=== PATIENT | male | born 1940 | race Two or more races ===

== ENCOUNTER 2020-05-25 21:42 | Inpatient (IN) | payer MEDICARE, BC ==
[~2020-05-25] VITALS: Ht 180.3 cm; Wt 92.3 kg
[2020-05-25 23:33] LABS: Basophils # (auto) 0 10 ^3/uL (0-0.2); Eosinophils # (auto) 0 10 ^3/uL (0-0.8); Hemoglobin 12.1 g/dL (13.5-17.5); Lymphocytes # (auto) 1.2 10 ^3/uL (0.4-5.4); Neutrophils # (auto) 8.1 10 ^3/uL (1.6-8.6); White Blood Cell 10.4 10^3/uL (4.4-10.8)
[2020-05-25 23:36] LABS: Basophils % (auto) 0.1 % (0.0-2.0); Eosinophils % (auto) 0.1 % (0.0-7.0); Hematocrit 35.2 % (41.0-53.0); Lymphocytes % (auto) 11.5 % (10.0-50.0); Mean Corpuscular Hemoglobin 36.9 pg (28.0-32.0); Mean Corpuscular Hgb Conc. 34.3 g/dL (32.0-36.0); Mean Corpuscular Volume 107.6 fL (80.0-100.0); Neutrophils % (auto) 78.3 % (37.0-80.0); Platelet Count (auto) 341 10^3/uL (140-450); Red Blood Cells 3.27 10^6/uL (4.5-5.90); Red Cell Distribution Width 16.2 % (11.8-14.3)
[2020-05-25 23:54] LABS: INR 0.97 (0.9-1.15); Partial Thromboplastin Time 29.3 sec (23.0-31.2)
[2020-05-25 23:59] LABS: Calcium 8.7 mg/dL (8.5-10.1); Potassium 4.7 mmol/L (3.5-5.1)
[2020-05-26 00:02] LABS: Lactic Acid w/Reflex 2.3 mmol/L (0.4-2.0)
[2020-05-26 00:06] LABS: BUN/Creatinine Ratio 12.4; Bilirubin, Total 0.3 mg/dL (0.2-1.0); Total Protein 7.4 g/dL (6.4-8.2)
[2020-05-26 03:50] LABS: Urine Bacteria FEW /hpf (None Seen); Urine Blood 3+ /uL (Negative); Urine Hyaline Cast FEW /lpf (0 - 2); Urine Specific Gravity 1.016 (1.001-1.035); Urine WBC 1 /hpf (0 - 3)
[2020-05-26 04:05] LABS: Alcohol, Urine < 3.0 mg/dL (0-10); Amphetamine Screen, Urine NEGATIVE (NEGATIVE); Barbiturate Scree,Urine NEGATIVE (NEGATIVE); Benzodiazephine Screen, Urine NEGATIVE (NEGATIVE); Cannabinoid Screen, Urine NEGATIVE (NEGATIVE); Cocaine Screen, Urine NEGATIVE (NEGATIVE); Opiate Scree,Urine NEGATIVE (NEGATIVE); Phencyclidine Screen, Urine NEGATIVE (NEGATIVE)
[2020-05-26] MEDS ORDERED: ONDANSETRON HCL 4 MG/2 ML VIAL IV PRN ×2 (04:30→07:15)
[2020-05-26] MEDS ORDERED: ACETAMINOPHEN 325 MG TAB PO PRN (07:15)
[2020-05-26] MEDS ORDERED: NITROGLYCERIN 0.4 MG SL TAB SL PRN (07:15)
[2020-05-26] MEDS ORDERED: SODIUM CHLORIDE 0.9% 1,000 ML IV SCH (07:15)
[2020-05-26] MEDS ORDERED: MORPHINE SULF INJ 2 MG/ML SYRINGE 1ML IV PRN (07:15)
[2020-05-26] MEDS ORDERED: DOCUSATE SOD 100 MG CAP PO PRN (07:15)
[2020-05-26] MEDS: FOLIC ACID 1 MG TAB PO SCH (07:32)
[2020-05-26] MEDS: FAMOTIDINE 20 MG TAB PO SCH (07:33)
[2020-05-26] MEDS: HEPARIN SODIUM (PORCINE) 5000 UNITS/ML 1ML VIAL SC SCH ×2 (07:33→22:18)
[2020-05-26] MEDS: ZINC SULFATE 220mg CAP or TAB PO SCH (07:33)
[2020-05-26] MEDS: MULTIPLE VITAMIN TAB PO SCH (07:33)
[2020-05-26] MEDS: THIAMINE HCL 100 MG TAB PO SCH (07:33)
[2020-05-26] MEDS: HYDROcodone-ACET 5/325MG TAB PO PRN ×2 (08:21→22:17)
[2020-05-26 09:07] LABS: Basophils # (auto) 0 10 ^3/uL (0-0.2); Eosinophils # (auto) 0 10 ^3/uL (0-0.8); Eosinophils % (auto) 0.1 % (0.0-7.0); Hemoglobin 12.4 g/dL (13.5-17.5); Lymphocytes # (auto) 1.8 10 ^3/uL (0.4-5.4); Mean Corpuscular Hemoglobin 35.9 pg (28.0-32.0); Mean Corpuscular Volume 107.1 fL (80.0-100.0); Monocytes # (auto) 0.8 10 ^3/uL (0-1.3); Red Cell Distribution Width 16.2 % (11.8-14.3); White Blood Cell 9.1 10^3/uL (4.4-10.8)
[2020-05-26 09:10] LABS: Basophils % (auto) 0.3 % (0.0-2.0); Hematocrit 36.8 % (41.0-53.0); Lymphocytes % (auto) 20.1 % (10.0-50.0); Mean Corpuscular Hgb Conc. 33.6 g/dL (32.0-36.0); Monocytes % (auto) 9.1 % (0.0-12.0); Neutrophils # (auto) 6.4 10 ^3/uL (1.6-8.6); Neutrophils % (auto) 70.4 % (37.0-80.0); Platelet Count (auto) 312 10^3/uL (140-450); Red Blood Cells 3.44 10^6/uL (4.5-5.90)
[2020-05-26 09:43] LABS: Albumin 2.8 g/dL (3.4-5.0); Calcium 8.5 mg/dL (8.5-10.1); Potassium 4.2 mmol/L (3.5-5.1)
[2020-05-26 09:47] LABS: BUN/Creatinine Ratio 14.6; Bilirubin, Total 0.5 mg/dL (0.2-1.0); Total Protein 7.3 g/dL (6.4-8.2)
[2020-05-26] MEDS ORDERED: ESCI10TA PO (10:32)
[2020-05-26] MEDS ORDERED: SILO8CAP13 PO (10:32)
[2020-05-26] MEDS ORDERED: FOLI1TAB6 PO (10:32)
[2020-05-26] MEDS: CIPROFLOXACIN 0.3%OPTH(EYE) SOL 5ML EACHEYE SCH ×2 (17:56→22:17)
[2020-05-26 18:00] VITALS: BP 137/69
[2020-05-26] MEDS ORDERED: POLY33504 PO (18:22)
[2020-05-27] VITALS: BP 137/63
[2020-05-27] MEDS ORDERED: TEMAZEPAM 15 MG CAP PO ONE (00:30)
[2020-05-27] MEDS: CIPROFLOXACIN 0.3%OPTH(EYE) SOL 5ML EACHEYE SCH ×7 (01:53→22:00)
[2020-05-27 05:00] VITALS: BP 139/71
[2020-05-27] MEDS: HYDROcodone-ACET 5/325MG TAB PO PRN ×3 (05:34→21:16)
[2020-05-27 05:45] LABS: Basophils # (auto) 0 10 ^3/uL (0-0.2); Basophils % (auto) 0.4 % (0.0-2.0); Monocytes # (auto) 0.5 10 ^3/uL (0-1.3)
[2020-05-27 05:47] LABS: Eosinophils # (auto) 0.1 10 ^3/uL (0-0.8); Eosinophils % (auto) 1.5 % (0.0-7.0); Hematocrit 34.3 % (41.0-53.0); Hemoglobin 11.6 g/dL (13.5-17.5); Lymphocytes # (auto) 1.2 10 ^3/uL (0.4-5.4); Mean Corpuscular Hemoglobin 35.8 pg (28.0-32.0); Mean Corpuscular Hgb Conc. 33.9 g/dL (32.0-36.0); Mean Corpuscular Volume 105.7 fL (80.0-100.0); Monocytes % (auto) 6.1 % (0.0-12.0); Neutrophils # (auto) 6.5 10 ^3/uL (1.6-8.6); Nucleated Red Blood Cells % 0.1 %; Platelet Count (auto) 290 10^3/uL (140-450); Red Blood Cells 3.25 10^6/uL (4.5-5.90); Red Cell Distribution Width 15.6 % (11.8-14.3); White Blood Cell 8.4 10^3/uL (4.4-10.8)
[2020-05-27 06:09] LABS: Albumin 2.8 g/dL (3.4-5.0); Calcium 8.8 mg/dL (8.5-10.1); Potassium 4.1 mmol/L (3.5-5.1)
[2020-05-27 06:12] LABS: BUN/Creatinine Ratio 16.5; Bilirubin, Total 0.6 mg/dL (0.2-1.0); Total Protein 6.8 g/dL (6.4-8.2)
[2020-05-27 08:00] VITALS: BP 137/76
[2020-05-27] MEDS: CITALOPRAM HYDROBR 20 MG TAB PO SCH (10:00)
[2020-05-27] MEDS: THIAMINE HCL 100 MG TAB PO SCH (10:00)
[2020-05-27] MEDS: ZINC SULFATE 220mg CAP or TAB PO SCH (10:00)
[2020-05-27] MEDS: FOLIC ACID 1 MG TAB PO SCH (10:00)
[2020-05-27] MEDS: MULTIPLE VITAMIN TAB PO SCH (10:01)
[2020-05-27] MEDS: FAMOTIDINE 20 MG TAB PO SCH (10:01)
[2020-05-27] MEDS: HEPARIN SODIUM (PORCINE) 5000 UNITS/ML 1ML VIAL SC SCH ×2 (10:02→21:53)
[2020-05-27 16:23] VITALS: BP 142/68
[2020-05-27 21:43] VITALS: BP 147/75
[2020-05-28] MEDS: CIPROFLOXACIN 0.3%OPTH(EYE) SOL 5ML EACHEYE SCH ×4 (02:00→13:55)
[2020-05-28] MEDS: HYDROcodone-ACET 5/325MG TAB PO PRN ×3 (04:54→13:55)
[2020-05-28 05:03] VITALS: BP 153/80
[2020-05-28 08:00] VITALS: BP 153/70
[2020-05-28] MEDS: MULTIPLE VITAMIN TAB PO SCH (09:33)
[2020-05-28] MEDS: ZINC SULFATE 220mg CAP or TAB PO SCH (09:33)
[2020-05-28] MEDS: CITALOPRAM HYDROBR 20 MG TAB PO SCH (09:33)
[2020-05-28] MEDS: FOLIC ACID 1 MG TAB PO SCH (09:42)
[2020-05-28] MEDS: FAMOTIDINE 20 MG TAB PO SCH (09:43)
[2020-05-28] MEDS: THIAMINE HCL 100 MG TAB PO SCH (09:43)
[2020-05-28] MEDS: HEPARIN SODIUM (PORCINE) 5000 UNITS/ML 1ML VIAL SC SCH (09:45)
[2020-05-28] MEDS ORDERED: ASPI-543 PO (09:59)
[2020-05-28] MEDS ORDERED: ATOR20TA50 PO (09:59)
[2020-05-28 12:45] LABS: Eosinophils # (auto) 0.1 10 ^3/uL (0-0.8)
[2020-05-28 12:50] LABS: Basophils # (auto) 0 10 ^3/uL (0-0.2); Basophils % (auto) 0.4 % (0.0-2.0); Eosinophils % (auto) 1.2 % (0.0-7.0); Hematocrit 34.3 % (41.0-53.0); Lymphocytes # (auto) 1.4 10 ^3/uL (0.4-5.4); Mean Corpuscular Hemoglobin 36.5 pg (28.0-32.0); Mean Corpuscular Hgb Conc. 34.8 g/dL (32.0-36.0); Mean Corpuscular Volume 104.8 fL (80.0-100.0); Monocytes # (auto) 0.3 10 ^3/uL (0-1.3); Monocytes % (auto) 3.7 % (0.0-12.0); Neutrophils # (auto) 5.7 10 ^3/uL (1.6-8.6); Neutrophils % (auto) 75.7 % (37.0-80.0); Nucleated Red Blood Cells % 0.1 %; Platelet Count (auto) 270 10^3/uL (140-450); Red Blood Cells 3.28 10^6/uL (4.5-5.90); Red Cell Distribution Width 15.2 % (11.8-14.3); White Blood Cell 7.5 10^3/uL (4.4-10.8)
[2020-05-28 16:01] LABS: Calcium 8.5 mg/dL (8.5-10.1)
[2020-05-28 16:10] LABS: BUN/Creatinine Ratio 18.1; Potassium 3.7 mmol/L (3.5-5.1)
== END 2020-05-28 14:49 | disposition left against medical advice (07) | DRG 91 ==
LOC: EDBD 21:42 → ER 21:42 → OVERFLOW 21:43 → TELE-CENTR 05-26 18:31
PROVIDERS: ADMIT Nurse Practitioner Family; ATTEND Internal Medicine Pulmonary Disease
DX: G92 Toxic encephalopathy (principal); I21.4 Non-ST elevation (NSTEMI) myocardial infarction; C34.90 Malignant neoplasm of unspecified part of unspecified bronchus or lung; N17.9 Acute kidney failure, unspecified; E86.9 Volume depletion, unspecified; D64.9 Anemia, unspecified; N28.9 Disorder of kidney and ureter, unspecified; R09.02 Hypoxemia; T40.605A Adverse effect of unspecified narcotics, initial encounter; Y92.89 Other specified places as the place of occurrence of the external cause; Z20.822 Contact with and (suspected) exposure to COVID-19; Z85.118 Personal history of other malignant neoplasm of bronchus and lung; R31.9 Hematuria, unspecified; Z92.21 Personal history of antineoplastic chemotherapy; Z53.29 Procedure and treatment not carried out because of patient's decision for other reasons
CPT/HCPCS: 36415; 51702; 70450; 71045; 80048; 80053; 80307; 80320; 81001; 82728; 83036; 83605; 84484; 85025; 85379; 85610; 85730; 86141; 87040; 87086; 87426; 93005; 96361; 96374; G0378; J2405